=== PATIENT | male | born 1960 | race Caucasian/White ===

== ENCOUNTER 2017-10-01 23:51 | Inpatient (IN) | payer OTHER ==
[~2017-10-01] VITALS: Ht 180.3 cm; Wt 104.3 kg
[~2017-10-01 23:51] MED LIST: ATEN-60; NAPR-228; TRAM50TA2
[2017-10-02 01:06] LABS: Basophils # (auto) 0.1 uL; Basophils % (auto) 0.4 % (0.0-2.0); Eosinophils # (auto) 0.1 uL; Eosinophils % (auto) 0.5 % (0.0-7.0); Hematocrit 42.7 % (41.0-53.0); Hemoglobin 14.5 g/dL (13.5-17.5); Lymphocytes # (auto) 1.2 uL; Lymphocytes % (auto) 8.7 % (10.0-50.0); Mean Corpuscular Hemoglobin 33.9 pg (28.0-32.0); Mean Corpuscular Volume 99.7 fL (80.0-100.0); Monocytes % (auto) 7.3 % (0.0-12.0); Neutrophils # (auto) 11.2 uL; Neutrophils % (auto) 83.1 % (37.0-80.0); Nucleated Red Blood Cells % 0.1 %; Platelet Count (auto) 161 10^3/uL (140-450); Red Blood Cells 4.28 10^6/uL (4.5-5.90); Red Cell Distribution Width 14.7 % (11.8-14.3); White Blood Cell 13.5 10^3/uL (4.4-10.8)
[2017-10-02 01:23] LABS: Albumin 3.8 g/dL (3.4-5.0); Anion Gap 10 (5-15); Blood Urea Nitrogen 19 mg/dL (7-18); Calcium 8.7 mg/dL (8.5-10.1); Carbon Dioxide 25 mmol/L (21-32); Chloride 104 mmol/L (98-107); Glucose 170 mg/dL (74-106); Magnesium 1.9 mg/dL (1.6-2.6); Potassium 3.8 mmol/L (3.5-5.1); Sodium 139 mmol/L (136-145)
[2017-10-02 01:25] LABS: GFR African American 106 mL/min; GFR Non-African American 88 mL/min
[2017-10-02 01:27] LABS: Urine Bacteria NONE SEEN /hpf (None Seen); Urine Blood Negative /uL (Negative); Urine Mucus FEW (None Seen); Urine Specific Gravity 1.026 (1.001-1.035); Urine WBC 1 /hpf (0 - 3)
[2017-10-02 01:29] LABS: BUN/Creatinine Ratio 20.2
[2017-10-02 01:32] LABS: Alanine Aminotransferase 36 U/L (16-61); Alkaline Phosphatase 41 U/L (45-117); Amylase 855 U/L (25-115); Aspartate Aminotransferase 18 U/L (15-37); Bilirubin, Total 0.5 mg/dL (0.2-1.0); Lipase 6871 U/L (73-393); Total Protein 7.3 g/dL (6.4-8.2)
[2017-10-02] MEDS ORDERED: MEPERIDINE HCL (50 MG/ML) 1 ML VIAL IV ONE (04:30)
[2017-10-02] MEDS ORDERED: ONDANSETRON HCL 4 MG/2 ML VIAL IV ONE (04:30)
[2017-10-02] MEDS: SODIUM CHLORIDE 0.9% 1,000 ML IV SCH ×2 (04:57→06:25)
[2017-10-02] MEDS ORDERED: SODIUM CHLORIDE 0.9% 1,000 ML IV SCH (06:15)
[2017-10-02] MEDS ORDERED: ACETAMINOPHEN 500 MG TAB PO PRN (06:15)
[2017-10-02] MEDS ORDERED: ONDANSETRON HCL 4 MG/2 ML VIAL IV PRN (06:15)
[2017-10-02] MEDS: HYDROcodone-ACET 5/325MG TAB PO PRN ×2 (07:22→15:10)
[2017-10-02] MEDS ORDERED: cefTRIAXone 1GM/10ml IVPUSH 10 ML IV SCH (08:00)
[2017-10-02 08:31] VITALS: BP 164/84
[2017-10-02] MEDS ORDERED: metroNIDAZOLE 500MG/100ML 100 ML IV SCH (09:00)
[2017-10-02 09:11] VITALS: BP 164/84
[2017-10-02] MEDS ORDERED: NAPR220C PO (09:14)
[2017-10-02] MEDS ORDERED: ATEN-60 PO (09:14)
[2017-10-02] MEDS ORDERED: ENOXAPARIN SOD 30 MG/0.3 ML SYRINGE SC SCH (10:00)
[2017-10-02 11:27] LABS: Amphetamine Screen, Urine NEGATIVE (NEGATIVE); Barbiturate Scree,Urine NEGATIVE (NEGATIVE); Benzodiazephine Screen, Urine NEGATIVE (NEGATIVE); Cannabinoid Screen, Urine NEGATIVE (NEGATIVE); Cocaine Screen, Urine NEGATIVE (NEGATIVE); Opiate Scree,Urine NEGATIVE (NEGATIVE); Phencyclidine Screen, Urine NEGATIVE (NEGATIVE)
[2017-10-02] MEDS: ENOXAPARIN SOD 40 MG/0.4 ML SYRINGE SC SCH (11:30)
[2017-10-02] MEDS: MEPERIDINE HCL (25 MG/ML) 1ML VIAL IM PRN ×2 (11:30→21:33)
[2017-10-02] MEDS: PANTOPRAZOLE 40 MG/10 ML VIAL IV SCH (11:31)
[2017-10-02 12:26] VITALS: BP 142/83
[2017-10-02] MEDS: ATENOLOL 50 MG TAB PO SCH (12:30)
[2017-10-02] MEDS: LACTATED RINGER'S 1,000 ML IV SCH ×3 (13:12→21:44)
[2017-10-02 17:00] VITALS: BP 121/68
[2017-10-02 22:00] VITALS: BP 127/72
[2017-10-03] MEDS ORDERED: TEMAZEPAM 15 MG CAP PO ONE (02:15)
[2017-10-03 04:00] VITALS: BP 145/80
[2017-10-03] MEDS: HYDROcodone-ACET 5/325MG TAB PO PRN ×2 (04:12→10:03)
[2017-10-03 06:51] LABS: Basophils # (auto) 0 uL; Hemoglobin 13.7 g/dL (13.5-17.5); Lymphocytes # (auto) 1.2 uL; Lymphocytes % (auto) 8.5 % (10.0-50.0); Mean Corpuscular Hgb Conc. 34.4 g/dL (32.0-36.0); Monocytes # (auto) 1.3 uL; Neutrophils # (auto) 11.5 uL; Red Blood Cells 4.01 10^6/uL (4.5-5.90); White Blood Cell 14.1 10^3/uL (4.4-10.8)
[2017-10-03 06:53] LABS: Basophils % (auto) 0.1 % (0.0-2.0); Eosinophils # (auto) 0 uL; Eosinophils % (auto) 0.3 % (0.0-7.0); Hematocrit 39.9 % (41.0-53.0); Mean Corpuscular Hemoglobin 34.2 pg (28.0-32.0); Mean Corpuscular Volume 99.5 fL (80.0-100.0); Monocytes % (auto) 9.5 % (0.0-12.0); Neutrophils % (auto) 81.6 % (37.0-80.0); Platelet Count (auto) 129 10^3/uL (140-450); Red Cell Distribution Width 14.5 % (11.8-14.3)
[2017-10-03 07:03] LABS: Albumin 3.1 g/dL (3.4-5.0); BUN/Creatinine Ratio 18.1; Calcium 8.2 mg/dL (8.5-10.1); Potassium 3.9 mmol/L (3.5-5.1)
[2017-10-03 07:06] LABS: Bilirubin, Total 0.8 mg/dL (0.2-1.0); Total Protein 6.3 g/dL (6.4-8.2)
[2017-10-03 09:00] VITALS: BP 128/72
[2017-10-03] MEDS: LACTATED RINGER'S 1,000 ML IV SCH (09:18)
[2017-10-03] MEDS: PANTOPRAZOLE 40 MG/10 ML VIAL IV SCH (09:53)
[2017-10-03] MEDS: ENOXAPARIN SOD 40 MG/0.4 ML SYRINGE SC SCH (09:54)
[2017-10-03] MEDS: ATENOLOL 50 MG TAB PO SCH (09:54)
[2017-10-03] MEDS ORDERED: LACTATED RINGER'S 1,000 ML IV SCH (11:15)
[2017-10-03 12:10] VITALS: BP 126/72
[2017-10-03] MEDS ORDERED: PANT40TA2 PO (14:05)
[2017-10-03 15:21] VITALS: BP 126/72
== END 2017-10-03 15:50 | disposition home or self-care (01) | DRG 440 ==
LOC: ER 23:51 → OVERFLOW 23:52 → EAST 10-02 08:31
PROVIDERS: ADMIT Nurse Practitioner Family; ATTEND Internal Medicine
DX: K85.90 Acute pancreatitis without necrosis or infection, unspecified (principal); E66.9 Obesity, unspecified; I10 Essential (primary) hypertension; K44.9 Diaphragmatic hernia without obstruction or gangrene; K76.0 Fatty (change of) liver, not elsewhere classified; R73.9 Hyperglycemia, unspecified; Z68.32 Body mass index [BMI] 32.0-32.9, adult
CPT/HCPCS: 36415; 74176; 76705; 80053; 80307; 81001; 82150; 83036; 83690; 83735; 84484; 85025; 87040; 93005; 96361; 96374; 96375; C9113; J2405

== ENCOUNTER → 2022-03-30 | Outpatient (CLI) | payer OTHER ==
[~2022-03-30] MED LIST changes: -ATEN-60; +ATEN-60 PO; -NAPR-228; +PANT40TA2 PO; -TRAM50TA2
[2022-03-30 07:11] LABS: Basophils # (auto) 0 10 ^3/uL (0-0.2); Basophils % (auto) 0.6 % (0.0-2.0); Eosinophils # (auto) 0.1 10 ^3/uL (0-0.8); Eosinophils % (auto) 1.6 % (0.0-7.0); Hemoglobin 13.8 g/dL (13.5-17.5); Lymphocytes # (auto) 1.8 10 ^3/uL (0.4-5.4); Lymphocytes % (auto) 22.8 % (10.0-50.0); Mean Corpuscular Hemoglobin 32.1 pg (28.0-32.0); Mean Corpuscular Hgb Conc. 33.7 g/dL (32.0-36.0); Monocytes # (auto) 0.6 10 ^3/uL (0-1.3); Monocytes % (auto) 7.7 % (0.0-12.0); Neutrophils # (auto) 5.2 10 ^3/uL (1.6-8.6); Neutrophils % (auto) 67.3 % (37.0-80.0); Nucleated Red Blood Cells % 0.1 %; Red Blood Cells 4.31 10^6/uL (4.5-5.90); White Blood Cell 7.8 10^3/uL (4.4-10.8)
[2022-03-30 07:36] LABS: Albumin 3.5 g/dL (3.4-5.0); Potassium 4.2 mmol/L (3.5-5.1)
[2022-03-30 07:40] LABS: BUN/Creatinine Ratio 21.1; Bilirubin, Total 0.4 mg/dL (0.2-1.0); Total Protein 6.4 g/dL (6.4-8.2)
[2022-03-30 08:32] LABS: Urine WBC None Seen /hpf (0 - 3)
[2022-03-30 08:37] LABS: Urine Bacteria NONE SEEN /hpf (None Seen); Urine Blood Negative /uL (Negative); Urine Specific Gravity 1.019 (1.001-1.035)
== END | disposition home or self-care (01) ==
LOC: LAB 06:41
PROVIDERS: ATTEND Student in an Organized Health Care Education/Training Program
DX: N40.1 Benign prostatic hyperplasia with lower urinary tract symptoms (principal); R73.9 Hyperglycemia, unspecified; R03.0 Elevated blood-pressure reading, without diagnosis of hypertension
CPT/HCPCS: 36415; 80053; 80061; 81001; 83036; 84153; 84443; 85025

== ENCOUNTER 2023-01-12 07:55 | Emergency (ER) | payer OTHER ==
[~2023-01-12] VITALS: Ht 180.3 cm; Wt 126.4 kg
[2023-01-12 08:49] VITALS: BP 146/83; PULSE 76; RESP 18; TEMP 97.9; O2SAT 99
[2023-01-12] MEDS ORDERED: BENZ200C64 PO (09:09)
[2023-01-12] MEDS ORDERED: PRED20TA2 PO (09:09)
[2023-01-12] MEDS ORDERED: LEVO500T91 PO (09:09)
== END 2023-01-12 09:21 | disposition home or self-care (01) ==
LOC: ER 07:55
DX: J20.9 Acute bronchitis, unspecified (principal); I10 Essential (primary) hypertension
CPT/HCPCS: 71046